=== PATIENT | male | born 1990 | race Two or more races ===

== ENCOUNTER 2018-05-21 14:54 | Emergency (ER) | payer BC ==
[~2018-05-21] VITALS: Ht 180.3 cm; Wt 79.4 kg
[2018-05-21 15:13] VITALS: BP 131/82
--- NOTE | 2018-05-21 15:47 | RAD ---
History: Twisted left foot playing basket yesterday. 5th metatarsal pain. Comparison: None. Findings: AP, lateral, and oblique views of the left foot. There is a transversely oriented, nondisplaced fracture involving the proximal metatarsal shafts located about 2.4 cm from the tubercle. There is a small osseous fragment adjacent to the lateral aspect of the 1st MTP joint, appears well-corticated, could represent small, old fracture fragment. Impression: Acute, nondisplaced stress fracture of the proximal 5th metatarsal. Electronically signed by: Alberto Vital MD (05/21/2018 3:44 PM) [place] [id number]
[2018-05-21] MEDS: HYDROcodone/APAP 5/325MG 1 TAB TABLET PO ONE (15:51)
[2018-05-21] MEDS ORDERED: HYDR-971 PO (15:56)
--- NOTE | 2018-05-21 15:56 | PHYS DOC ---
Past Medical History Past Medical History: No Pertinent History Past Surgical History: No Surgical History Alcohol Use: None Drug Use: None Adult General Chief Complaint Chief Complaint: FOOT INJURY PAIN [facility] HPI Patient is a 28 year old male who presents with pain to his fifth left metacarpal after he came down on his foot playing basketball. He states that it is very painful to bear weight. He denies any other injury. He has been trying [id number] pain medication with mild relief. Review of Systems Review of Systems Constitutional: Denies fever or chills [] Respiratory: Denies cough or shortness of breath [] Cardiovascular: No additional information not addressed in HPI [] Musculoskeletal: See history of present illness Integument: Denies rash or skin lesions [] Neurologic: Denies headache, focal weakness or sensory changes [] Endocrine: Denies polyuria or polydipsia [] All other systems were reviewed and found to be within normal limits, except as documented in this note. Current Medications Current Medications Current Medications Medications (Trade) Dose Ordered Sig/Annmarie Start Time Stop Time Status Last Admin Dose Admin Acetaminophen/ Hydrocodone Bitart (Lortab 5/325) 1 tab 1X ONCE 05/21/18 15:45 05/21/18 15:46 DC 05/21/18 15:51 1 TAB Allergies Allergies Allergies Coded Allergies Type Severity Reaction Last Updated Verified No Known Drug Allergies 05/21/18 No Physical Exam Physical Exam Constitutional: Well developed, well nourished, no acute distress, non-toxic appearance. [] Cardiovascular:Heart rate regular rhythm, no murmur [] Lungs & Thorax: Bilateral breath sounds clear to auscultation [] Abdomen: Bowel sounds normal, soft, no tenderness, no masses, no pulsatile masses. [] Skin: Warm, dry, no erythema, no rash. [] Back: No tenderness, no CVA tenderness. [] Extremities: tenderness over mid fifth metatarsal with palpation on the left, no gross deformity felt, no cyanosis, no clubbing, ROM decreased due to pain, no edema, pulses and sensation are intact distal to injury. [] Neurologic: Alert and oriented X 3, normal motor function, normal sensory function, no focal deficits noted. [] Psychologic: Affect normal, judgement normal, mood normal. [] Current Patient Data Vital Signs Vital Signs Date Time Temp Pulse Resp B/P (MAP) Pulse Ox O2 Delivery O2 Flow Rate FiO2 10/29/18 15:13 98.1 72 18 131/82 (98) 99 Room Air 98.1 EKG EKG [] Radiology/Procedures Radiology/Procedures []PATIENT: GURVINDER PEARSON: [id number]#: [id number] : 1990 LOCATION: ER AGE: 28 SEX: M EXAM STATUS: REG ER ORD. PHYSICIAN: VIDAL MARINELLI APRN REASON: 5th metatarsal pain, basketball injury PROCEDURE: FOOT LEFT 3V History: Twisted left foot playing basket yesterday. 5th metatarsal pain. Comparison: None. Findings: AP, lateral, and oblique views of the left foot. There is a transversely oriented, nondisplaced fracture involving the proximal metatarsal shafts located about 2.4 cm from the tubercle. There is a small osseous fragment adjacent to the lateral aspect of the 1st MTP joint, appears well-corticated, could represent small, old fracture fragment. Impression: Acute, nondisplaced stress fracture of the proximal 5th metatarsal. Electronically signed by: Alberto Schafer MD (05/21/2018 3:44 PM) [facility] DICTATED and SIGNED BY: ALBERTO SCHAFER MD DATE: 05/21/18 153 Course & Med Decision Making Course & Med Decision Making Pertinent Labs and Imaging studies reviewed. (See chart for details) []The patient was placed in a postop shoe and given crutches. He is to follow- up with podiatry for a recheck of this fracture. He is in agreement with this plan. Dragon Disclaimer Dragon Disclaimer This electronic medical record was generated, in whole or in part, using a voice recognition dictation system. Departure Departure Impression: Primary Impression: Fracture of fifth metatarsal bone Disposition: 01 HOME, SELF-CARE Condition: STABLE Referrals: NO PCP (PCP) SAGAR DANIELS DPM Patient Instructions: Metatarsal Stress Fracture Additional Instructions: Follow-up with podiatry for your foot fracture. Your prescribed pain medication do not drive or operate heavy machinery while taking this medication. Scripts Hydrocodone/Apap 5-325 (NORCO 5-325 TABLET) 1 Each Tablet 1 TAB PO PRN Q6HRS PRN for PAIN, #14 TAB 0 Refills Prov: VIDAL MARINELLI APRN 05/21/18 VIDAL MARINELLI APRN May 21, 2018 15:56
== END 2018-05-21 16:04 | disposition home or self-care (01) ==
LOC: ER 14:54
DX: M84.375A Stress fracture, left foot, initial encounter for fracture (principal); X58.XXXA Exposure to other specified factors, initial encounter; Y93.67 Activity, basketball; Y92.89 Other specified places as the place of occurrence of the external cause; Y99.8 Other external cause status
CPT/HCPCS: 73630; 99284